=== PATIENT | male | born 1990 | race Caucasian/White ===

== ENCOUNTER → 2023-04-02 | Emergency (ER) | payer SELFPAY ==
[~2023-04-02] VITALS: Ht 182.9 cm; Wt 81.8 kg
[~2023-04-02] MED LIST: METOCLOPRAMIDE HCL 10 MG TAB PO ONE; MORPHINE SULFATE 4 MG/ML SYR/VIAL IM ONE
[2023-04-02 20:36] VITALS: O2SAT 98
[2023-04-02 20:40] VITALS: BP 145/94; PULSE 90; RESP 16
== END | disposition home or self-care (01) ==
LOC: ER 11:40 → EDBD 11:40
DX: F11.23 Opioid dependence with withdrawal (principal)
CPT/HCPCS: 96372; 99283; J2270; J8597